=== PATIENT | female | born 2000 | race Caucasian/White ===

== ENCOUNTER 2022-10-12 19:35 | Emergency (ER) | payer OTHER, SELFPAY ==
--- NOTE | 2022-10-12 19:37 | ED.EAR ---
HPI - Ear Problem General Chief complaint: Ear Stated complaint: Ear Irritation Time Seen by Provider: 10/12/22 19:37 Source: patient Mode of arrival: ambulatory Limitations: no limitations History of Present Illness HPI Narrative: Elvira is a 22-year-old female patient presenting to the clinic today with complaints of left ear pain x2 weeks. She reports no known fever chills. States she does get recurrent ear infections and outer ear infections Related Data Allergies Allergy/AdvReac Type Severity Reaction Status Date / Time No Known Allergies Allergy Verified 10/12/22 19:50 Review of Systems Review of Systems: Pertinent positives per HPI. Patient denies any fever, chills, rash, headache, visual changes, dizziness, cough, shortness of breath, chest pain, palpitations, nausea, vomiting, diarrhea, constipation, abdominal pain, or any urinary issues. PMFSH Comments At the time of my signature, I reviewed and agree with the nursing past medical, surgical, social, and family history. There is no relevant family history pertinent to the patient complaint. Exam Narrative: General: Well-developed, well nourished, in no apparent distress Head: Normocephalic, atraumatic Eyes: Pupils equally round and reactive to light bilaterally, EOM intact, sclera and conjunctive clear, no discharge, lids normal Ears: Right tMs intact and clear, left TM bulging, congested, red, right ear canals clear, left ear canal swollen and red with white exudate, tenderness to pulling of the pinna and palpation of the tragus to the left ear, grossly hearing normal. Nose: Nares patent, no discharge, no inflammation, no sinus tenderness. Mouth: Oral pharynx without lesions or masses, good dentition, MMM. Neck: Supple, trachea midline, no enlargement of anterior or posterior cervical nodes, no thyroid masses or goiter palpable. Cardio: Regular rate and rhythm, s1 and s2 normal, no murmur appreciated. Resp: Clear to auscultation bilaterally, no rhonchi, rales, wheezing or rubs Course Course Emergency Course: Portions of this record may have been created with voice recognition software. Level of Care: Express Care Visit Vital Signs Vital signs: Vital Signs Temperature 36.4 C L 10/12/22 19:48 Pulse Rate 61 10/12/22 19:48 Respiratory Rate 14 10/12/22 19:48 Blood Pressure 130/78 10/12/22 19:48 Pulse Oximetry 100 10/12/22 19:48 Oxygen Delivery Room Air 10/12/22 19:48 Temperature 36.4 C L 10/12/22 19:48 Pulse Rate 61 10/12/22 19:48 Respiratory Rate 14 10/12/22 19:48 Blood Pressure 130/78 10/12/22 19:48 Pulse Oximetry 100 10/12/22 19:48 Oxygen Delivery Room Air 10/12/22 19:48 Vital signs reviewed Medical Decision Making MDM Narrative Medical decision making narrative: At the time of visit patient is resting comfortably on exam table. I suspect patient has otitis media and otitis externa. Will send in prescription for amoxicillin and ofloxacin ear drops. Supportive measures were discussed with the patient she voiced understanding discharge instructions agrees to treatment plan. Differential Diagnosis Differential Diagnosis: Otitis media, otitis externa, eustachian tube dysfunction, upper respiratory infection Vital Signs Vital Signs: Vital Signs Temperature 36.4 C L 10/12/22 19:48 Pulse Rate 61 10/12/22 19:48 Respiratory Rate 14 10/12/22 19:48 Blood Pressure 130/78 10/12/22 19:48 Pulse Oximetry 100 10/12/22 19:48 Oxygen Delivery Room Air 10/12/22 19:48 Temperature 36.4 C L 10/12/22 19:48 Pulse Rate 61 10/12/22 19:48 Respiratory Rate 14 10/12/22 19:48 Blood Pressure 130/78 10/12/22 19:48 Pulse Oximetry 100 10/12/22 19:48 Oxygen Delivery Room Air 10/12/22 19:48 Discharge Plan Discharge Clinical Impression: Otitis media Qualifiers: Otitis media type: suppurative Chronicity: acute Laterality: left Recurrence: non-recurrent Spontaneous tympanic membra
[2022-10-12 19:48] VITALS: BP 130/78; PULSE 61; RESP 14; TEMP 36.4; O2SAT 100
== END 2022-10-12 19:55 | disposition home or self-care (01) ==
PROVIDERS: Emergency Provider Nurse Practitioner Family
DX: H66.002 Acute suppurative otitis media without spontaneous rupture of ear drum, left ear (principal); H60.312 Diffuse otitis externa, left ear
CPT/HCPCS: 99203; G0463

== ENCOUNTER 2023-04-25 14:47 | Emergency (ER) | payer OTHER, SELFPAY ==
[2023-04-25 14:57] VITALS: BP 119/77; PULSE 107; RESP 18; TEMP 36.7; O2SAT 100
--- NOTE | 2023-04-25 15:14 | ED.EAR ---
HPI - Ear Problem General Chief complaint: Ear Stated complaint: left side ear pain Time Seen by Provider: 04/25/23 15:41 Source: patient and RN notes reviewed Mode of arrival: ambulatory Limitations: no limitations History of Present Illness HPI Narrative: 22-year-old female presents with concern for left ear pain. Reports symptoms started 1 week ago in worsen the last 3 days. Mode she denies nasal congestion, rhinorrhea, sore throat, fever. MD Complaint: ear pain Related Data Home Medications Medication Instructions Recorded Confirmed cholecalciferol (vitamin D3) 1,250 04/25/23 mcg (50,000 unit) capsule viloxazine 200 mg capsule,extended mg PO 04/25/23 release 24 hr ([facility]) Allergies Allergy/AdvReac Type Severity Reaction Status Date / Time No Known Allergies Allergy Verified 04/25/23 15:13 Review of Systems Review of Systems: CONSTITUTIONAL: Denies malaise, chills, sweats, or fever. EYES: Denies visual changes, redness, or discharge. ENT: Denies rhinorrhea, congestion, sinus pain, and sore throat. Reports left ear pain CARDIOVASCULAR: Denies chest pain, palpitations, or edema. RESPIRATORY: Denies cough. Denies dyspnea. GASTROINTESTINAL: Denies abdominal pain, nausea, vomiting, diarrhea SKIN: Denies rash or itching. MUSCULOSKELETAL: Denies myalgia. NEUROLOGIC: Denies headache. All systems reviewed & are unremarkable except as noted in HPI and below PMFSH Comments At time of signature, agree with nursing past medical, surgical, social and family history. There is no relevant family history pertinent to the presenting complaint Exam Narrative: GENERAL: Well-appearing, well-nourished, and in no acute distress. HEAD: Normocephalic EYES: PERRLA, conjunctivae clear ENT: Nares clear, turbinates erythematous, clear discharge. Mucous membranes moist. Right TM pearly johnson with dull light reflex, left TM erythematous and bulging; no tragal tenderness. Oropharynx not erythematous without lesions. Tonsils not enlarged and without exudate, no drooling, no hoarseness, no trismus, uvula midline. NECK: Supple. No lymphadenopathy CHEST: Clear to auscultation, breath sounds equal. No wheezing, rhonchi, rales, or stridor. No respiratory distress, speaks in full sentences. HEART: Regular rate and rhythm. No murmur heard. SKIN: Warm, dry, no rash. NEURO: Alert and oriented x3. PSYCH: Normal mood and affect Course Course Emergency Course: Patient is aware of diagnosis, understands and agrees to treatment plan. Anticipatory guidance given. Patient agrees to follow-up as directed and is aware of reasons to seek care at the emergency department. Portions of this record may have been created with voice recognition software Level of Care: Express Care Visit Vital Signs Vital signs: Vital Signs Temperature 98.1 F 04/25/23 14:57 Pulse Rate 107 H 04/25/23 14:57 Respiratory Rate 18 04/25/23 14:57 Blood Pressure 119/77 04/25/23 14:57 Pulse Oximetry 100 04/25/23 14:57 Oxygen Delivery Room Air 04/25/23 14:57 Temperature 98.1 F 04/25/23 14:57 Pulse Rate 107 H 04/25/23 14:57 Respiratory Rate 18 04/25/23 14:57 Blood Pressure 119/77 04/25/23 14:57 Pulse Oximetry 100 04/25/23 14:57 Oxygen Delivery Room Air 04/25/23 14:57 Reviewed. Medical Decision Making MDM Narrative Medical decision making narrative: Differential diagnosis considered: Garnett virus, strep pharyngitis, allergic rhinitis, upper respiratory tract infection, sinusitis, rhinosinusitis, nasopharyngitis. viral pharyngitis, otitis media, otitis externa, otitis effusion, cerumen impaction, foreign body. Exam findings show no acute concerns or changes; patient is non-toxic appearing and is in no distress. Patient is appropriate for outpatient treatment and follow-up. Vital Signs Vital Signs: Vital Signs Temperature 98.1 F 04/25/23 14:57 Pulse Rate 107 H 04/25/23 14:57 Respiratory Rate 04/25
== END 2023-04-25 15:52 | disposition home or self-care (01) ==
PROVIDERS: Emergency Provider Nurse Practitioner
DX: H66.92 Otitis media, unspecified, left ear (principal)
CPT/HCPCS: 99213; G0463